=== PATIENT | male | born 1980 | race Caucasian/White ===

== ENCOUNTER 2017-07-12 19:37 | Emergency (ER) | payer OTHER ==
[~2017-07-12] VITALS: Ht 175.3 cm; Wt 72.7 kg
[2017-07-12 19:38] VITALS: BP 145/80; PULSE 118; RESP 18; TEMP 103.1; O2SAT 94
[2017-07-12 19:59] VITALS: BP 116/77; PULSE 78; RESP 16; TEMP 99; O2SAT 100
--- NOTE | 2017-07-12 20:00 | PD ---
HPI Chief Complaint: medical clearance Time Seen by Provider: 19:48 Travel History International Travel<30 days: No Contact w/Intl Traveler<30days: No Traveled to known affect area: No History of Present Illness HPI This is a 37-year-old male who presents under police custody for medical clearance to go to [facility]. The patient was arrested this evening. While being apprehended he reports that an officer put his knee on his left chest wall forcefully. Since then he has had left upper chest wall pain. The patient is a sharp pain which is constant and worse with deep inspiration. Denies shortness of breath, back pain, nausea or vomiting, abdominal pain. No other complaints. [facility] Social History Alcohol Use: Yes Tobacco Use: Yes Allergies-Medications (Allergen,Severity, Reaction): Coded Allergies: No Known Allergies (Unverified , 07/12/17) Reported Meds & Prescriptions Reported Meds & Active Scripts Active No Active Prescriptions or Reported Medications Review of Systems Except as stated in HPI: all other systems reviewed are Neg Physical Exam Narrative GENERAL: Well-developed well-nourished male in no acute distress SKIN: Warm and dry. No bruising or soft tissue swelling HEAD: Atraumatic. Normocephalic. EYES: Pupils equal and round. No scleral icterus. No injection or drainage. ENT: No nasal bleeding or discharge. Mucous membranes pink and moist. NECK: Trachea midline. No JVD. CARDIOVASCULAR: Regular rate and rhythm. No murmur appreciated. RESPIRATORY: No accessory muscle use. Clear to auscultation. Breath sounds equal bilaterally. GASTROINTESTINAL: Abdomen soft, non-tender, nondistended. Hepatic and splenic margins not palpable. MUSCULOSKELETAL: No obvious deformities. There is some tenderness to palpation to the left upper chest wall with no bony crepitus. NEUROLOGICAL: Awake and alert. No obvious cranial nerve deficits. Motor grossly within normal limits. Normal speech. PSYCHIATRIC: Appropriate mood and affect; insight and judgment normal. Data Data Last Documented VS Vital Signs Date Time Temp Pulse Resp B/P (MAP) Pulse Ox O2 Delivery O2 Flow Rate FiO2 07/12/17 19:59 99.0 78 16 116/77 (90) 100 Orders Orders Chest, Single Ap (07/12/17 ) [facility] Medical Decision Making Medical Screen Exam Complete: Yes Emergency Medical Condition: Yes Medical Record Reviewed: Yes Differential Diagnosis Chest wall contusion, fracture, abrasion Narrative Course X-ray imaging reveals no acute abnormalities. The patient is stable for discharge. Diagnosis Primary Impression: Chest wall contusion Additional Instructions: Tylenol and Motrin for pain. Return for any emergent medical conditions. Follow-up with primary care as needed. Med/Other Pt SpecificInfo: No Change to Meds Scripts No Active Prescriptions or Reported Meds Disposition: [address] LAW ENFORCEMNT Condition: Stable Isidro Mccann Jul 12, 2017 20:00
--- NOTE | 2017-07-12 21:23 | RADRPT ---
EXAM DATE/TIME: 07/12/2017 20:35 [place] COMPARISON: No previous studies available for comparison. INDICATIONS : Rib pain. MEDICAL HISTORY : Unobtainable. SURGICAL HISTORY : Unobtainable. ENCOUNTER: Initial ACUITY: 1 day PAIN SCORE: Non-responsive. LOCATION: Bilateral chest FINDINGS: There is an old displaced fracture involving the left mid clavicle. Old fractures involving the poste rior aspects of the left third, fifth, sixth and seventh ribs are noted. No acute rib fractures noted on this view of the chest. The heart is normal. The pulmonary vascular pattern is normal. The lungs are clear. CONCLUSION: 1. Old fractures involving the left third, fifth, sixth and seventh ribs. 2. Old displaced fracture involving the left mid clavicle. 3. No acute cardiopulmonary disease. Terell Bar MD on July 12, 2017 at 21:19 Board Certified Radiologist. This report was verified electronically.
== END 2017-07-12 21:46 ==
LOC: NEPD 19:37
DX: S20.212A Contusion of left front wall of thorax, initial encounter (principal); Z72.0 Tobacco use; Y35.813A Legal intervention involving manhandling, suspect injured, initial encounter
CPT/HCPCS: 71010; 99283